=== PATIENT | female | born 1935 | race Two or more races ===

== ENCOUNTER 2017-11-28 10:26 | Outpatient (CLI) | payer OTHER ==
[~2017-11-28] VITALS: Ht 152.4 cm; Wt 52.2 kg
[~2017-11-28 10:26] MED LIST: ASA81 MG PO; COZAAR100 MG PO; INDAPAMIDE1.25 MG PO; LIPITOR20 MG PO; MAALOX PLUS30 ML PO; NEURONTIN300 MG PO; TOPROL XL100 MG PO
== END 2017-11-28 10:45 | disposition home or self-care (01) ==
LOC: OFIC 805 10:26
DX: H61.23 Impacted cerumen, bilateral (principal); H60.8X3 Other otitis externa, bilateral; J31.0 Chronic rhinitis; R42 Dizziness and giddiness

== ENCOUNTER 2018-10-16 07:46 | Outpatient (CLI) | payer OTHER ==
[~2018-10-16] VITALS: Ht 152.4 cm; Wt 57.6 kg
== END 2018-10-16 08:00 | disposition home or self-care (01) ==
LOC: OFIC 805 07:46
DX: H90.3 Sensorineural hearing loss, bilateral (principal); H61.23 Impacted cerumen, bilateral; R42 Dizziness and giddiness; J34.3 Hypertrophy of nasal turbinates; J31.0 Chronic rhinitis

== ENCOUNTER 2019-09-27 16:15 | Emergency (ER) | payer OTHER ==
[~2019-09-27] VITALS: Ht 152.4 cm; Wt 54.4 kg
== END 2019-09-27 22:26 | disposition home or self-care (01) ==
LOC: ER 16:15
DX: S51.022A Laceration with foreign body of left elbow, initial encounter (principal); W18.09XA Striking against other object with subsequent fall, initial encounter; Y93.89 Activity, other specified; Y92.018 Other place in single-family (private) house as the place of occurrence of the external cause; Y99.8 Other external cause status